=== PATIENT | female | born 1950 | race Caucasian/White ===

== ENCOUNTER 2023-06-15 05:11 | Day surgery (SDC) | payer OTHER, BC ==
[2023-06-13 14:17] VITALS: BMI 27.4
[2023-06-15 11:08] VITALS: TEMP 97
[2023-06-15 11:15] VITALS: RESP 15
[2023-06-15 11:40] VITALS: BP 142/66; PULSE 70
== END 2023-06-15 12:15 | disposition home or self-care (01) ==
LOC: JASU-ENDO 05:11
PROVIDERS: ATTEND Internal Medicine Gastroenterology
PROC: 0DBH8ZX Excision of Cecum, Via Natural or Artificial Opening Endoscopic, Diagnostic (ICD-10-PCS; principal; 2023-06-15 11:30)
DX: Z12.11 Encounter for screening for malignant neoplasm of colon (principal); K64.4 Residual hemorrhoidal skin tags; K57.30 Diverticulosis of large intestine without perforation or abscess without bleeding; Z86.010 Personal history of colon polyps; I10 Essential (primary) hypertension
CPT/HCPCS: 88305-TC

== ENCOUNTER 2024-02-17 08:25 | Emergency (ER) | payer OTHER, BC ==
[2024-02-17 08:31] VITALS: PULSE 83; RESP 18; TEMP 98; BMI 27.4
[2024-02-17 09:51] LABS: BASO % 1.1 % (0-2.0); EOS % 6.9 % (0-4.5); HEMATOCRIT 34.3 % (32.4-45.2); HEMOGLOBIN 11.3 GM/dL (10.7-15.3); LYMPH % 26.6 % (8-40); MCHC 32.9 g/dl (32.0-36.0); MEAN PLT VOLUME 8.3 fl (7.5-11.1); MONO % 8.9 % (3.8-10.2); NEUT % 56.5 % (42.8-82.8); PLATELET COUNT 204 10^3/uL (134-434); RBC 4.04 M/mm3 (3.60-5.2); RDW 13.6 % (11.6-15.6); WHITE BLOOD COUNT 5.1 K/mm3 (4.0-10.0)
[2024-02-17] MEDS ORDERED: morphine SULFATE 4 MG/ML VIAL ONE (09:57)
[2024-02-17] MEDS: morphine CARPU-JECT 4 MG/1 ML DISP.SYRIN IVPUSH ONE (10:06)
[2024-02-17 10:07] VITALS: BP 163/78
[2024-02-17 10:09] LABS: POTASSIUM 3.7 mmol/L (3.5-5.1)
[2024-02-17 10:10] LABS: CALCIUM 9.3 mg/dL (8.5-10.1)
[2024-02-17 10:11] LABS: ALBUMIN 3.7 g/dl (3.4-5.0); BLOOD UREA NITROGEN 14.9 mg/dL (7-18); MAGNESIUM 2.1 mg/dL (1.8-2.4)
[2024-02-17 10:14] LABS: CREATININE 0.9 mg/dL (0.55-1.3)
[2024-02-17 10:15] LABS: BILIRUBIN,TOTAL 0.4 mg/dL (0.2-1)
[2024-02-17 10:17] LABS: TOT PROT 6.6 g/dl (6.4-8.2)
== END 2024-02-17 12:54 | disposition home or self-care (01) ==
LOC: JER 08:25
PROC: 3E033NZ Introduction of Analgesics, Hypnotics, Sedatives into Peripheral Vein, Percutaneous Approach (ICD-10-PCS; principal; 2024-02-17)
DX: S20.212A Contusion of left front wall of thorax, initial encounter (principal); W01.0XXA Fall on same level from slipping, tripping and stumbling without subsequent striking against object, initial encounter; Y93.E5 Activity, floor mopping and cleaning
CPT/HCPCS: 36415; 71045-TC-FY; 71250-TC; 80053; 83735; 84484; 85025; 93005; 93010; 99285-25